=== PATIENT | female | born 2000 | race Caucasian/White ===

== ENCOUNTER 2020-04-03 12:20 | Emergency (ER) | payer MEDICAID ==
[~2020-04-03] VITALS: Ht 165.1 cm; Wt 64.0 kg
[2020-04-03 13:48] VITALS: BP 96/51
== END 2020-04-03 14:29 | disposition left against medical advice (07) ==
LOC: ER 12:48
DX: F19.10 Other psychoactive substance abuse, uncomplicated (principal); Z00.00 Encounter for general adult medical examination without abnormal findings
CPT/HCPCS: 82962; 99283